=== PATIENT | female | born 1975 | race Caucasian/White ===

== ENCOUNTER 2018-03-08 10:47 | Emergency (ER) | payer OTHER ==
[~2018-03-08] VITALS: Ht 157.5 cm; Wt 90.7 kg
[2018-03-08 10:52] VITALS: Ht 157.5 cm; Wt 90.7 kg
[2018-03-08 11:38] LABS: BASOPHIL % 0.9 % (0-2); PLATELET COUNT 252 x10^3mcL (130-400); RED CELL DISTRIBUTION WIDTH 13.1 % (11.5-14.5)
[2018-03-08 11:55] LABS: ALKALINE PHOSPHATASE 83 U/L (46-116); ALT/SGPT 15 U/L (14-59); AST/SGOT 14 U/L (15-37); BILIRUBIN TOTAL 0.38 mg/dL (0.20-1.00); CALCIUM 8.4 mg/dL (8.5-10.1); CARBON DIOXIDE 28.4 mmol/L (21-32); CHLORIDE SERUM 106 mmol/L (98-107); CREATININE SERUM 1.3 mg/dL (0.6-1.0); GFR1 48 mL/min; GLUCOSE SERUM 112 mg/dL (74-106); POTASSIUM SERUM 3.6 mmol/L (3.5-5.1); SODIUM SERUM 141 mmol/L (136-145); TOTAL PROTEIN, SERUM 7.2 g/dL (6.4-8.2)
[2018-03-08 11:56] LABS: ALBUMIN 3.2 g/dL (3.4-5.0); T4(THYROXINE) 15.8 ug/dL (4.7-13.3)
[2018-03-08 11:59] LABS: UA SPECIFIC GRAVITY >=1.030 (1.005-1.035); microscopic required? YES; urine erythrocyte NEGATIVE (NEGATIVE)
[2018-03-08 12:09] LABS: AMPHETAMINE QUAL UR NONE DETECTED (See below)
[2018-03-08 22:20] VITALS: BP 114/75
== END 2018-03-08 22:20 ==
LOC: ED 10:47
PROVIDERS: Emergency Medicine
DX: R45.851 Suicidal ideations (principal); F32.9 Major depressive disorder, single episode, unspecified; E03.9 Hypothyroidism, unspecified; E66.9 Obesity, unspecified; E46 Unspecified protein-calorie malnutrition; N18.3 Chronic kidney disease, stage 3 (moderate); Z68.36 Body mass index [BMI] 36.0-36.9, adult; Z88.0 Allergy status to penicillin; Z88.8 Allergy status to other drugs, medicaments and biological substances
CPT/HCPCS: 36415; G0480